=== PATIENT | female | born 1990 | race Caucasian/White ===

== ENCOUNTER 2022-03-06 16:31 | Emergency (ER) | payer OTHER, SELFPAY ==
--- NOTE | ~2022-03-06 | XR_ITS ---
EXAMINATION: XR WRIST, LEFT CLINICAL INFORMATION: Wrist pain status post injury COMPARISON: None TECHNIQUE: Four views of the left wrist. FINDINGS: The bones and soft tissues are normal. No fracture. Alignment is anatomic with normal joint spaces. No erosions or abnormal soft tissue calcifications. XR/XR wrist LT min 3V IMPRESSION: No bony abnormality of the left wrist identified.
[2022-03-06 17:29] VITALS: BP 125/77; PULSE 87; RESP 16; TEMP 36.8; O2SAT 97; BMI 41.1
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
== END 2022-03-06 19:28 | disposition home or self-care (01) ==
PROVIDERS: Emergency Provider Emergency Medicine
DX: S60.212A Contusion of left wrist, initial encounter (principal); X58.XXXA Exposure to other specified factors, initial encounter; Y93.9 Activity, unspecified; Y92.9 Unspecified place or not applicable; Y99.0 Civilian activity done for income or pay
CPT/HCPCS: 73110; 99282; 99283

== ENCOUNTER 2025-05-13 19:28 | Emergency (ER) | payer OTHER, SELFPAY ==
[2025-05-13 19:30] VITALS: BP 131/57; PULSE 86; RESP 16; TEMP 36.8; O2SAT 100; BMI 35.2
--- NOTE | 2025-05-13 19:37 | ED.GENADULT ---
HPI - General Adult General Chief complaint: Allergic Reaction Stated complaint: allergic reaction Related Data Allergies Allergy/AdvReac Type Severity Reaction Status Date / Time No Known Allergies Allergy Verified 05/13/25 19:33 [facility] Social History Social History Advance Directives: No Advance Directives Information Provided: No Do you have a plan to hurt others: No Plan Physical Exam ED Vital Signs: Vital Signs - 24 hr 05/13/25 19:30 Temperature 98.2 F Pulse Rate 86 Respiratory Rate 16 Blood Pressure 131/57 L Pulse Oximetry 100 Oxygen Delivery Method Room Air BMI result Body Mass Index 35.2 Course Course Course Narrative: Medical screening exam performed. Please refer to detailed history, exam, evaluation, and management by primary provider. Suspected insect sting from hornet at approximately 6:00 p.m.. Self administered EpiPen x2 in the right thigh. Slight erythema to right calf in the 2 spots. No airway compromise. Speaks full clear sentences. Lungs clear. Oropharynx is moist. Continue to monitor. JS Discharge Plan Discharge Clinical Impression: Allergic reaction Patient Disposition: Left W/O Completing Treatment Discharge Date/Time: 05/13/25 21:41
--- NOTE | 2025-05-13 21:40 | PC.NURSE ---
pt reports the swelling of her leg has resolved and denies any breathing issues. states she wants to leave at this time. educated to return if any new/worsening sx and pt agrees.
== END 2025-05-13 21:41 | disposition left against medical advice (07) ==
PROVIDERS: Emergency Provider Emergency Medicine
DX: T63.441A Toxic effect of venom of bees, accidental (unintentional), initial encounter (principal); Y92.9 Unspecified place or not applicable; Z53.21 Procedure and treatment not carried out due to patient leaving prior to being seen by health care provider
CPT/HCPCS: 99281